=== PATIENT | male | born 1975 | race Caucasian/White ===

== ENCOUNTER 2020-10-31 04:59 | Emergency (ER) | payer OTHER ==
[~2020-10-31] VITALS: Ht 180.3 cm; Wt 113.4 kg
[~2020-10-31 04:59] MED LIST: CYCL10 PO; HYDACE5 PO; HYDACE7.5 PO; MEDICAL MARIJUANA; NAPR500 PO; Norco 10-325 T1 EACH PO; OXYACE5T PO; PROP10; TOBR.3OPSO OP; TRAM50 PO
[2020-10-31] MEDS ORDERED: GABA100 (05:36)
[2020-10-31] MEDS ORDERED: BLOOD PRESSURE MED (05:37)
[2020-10-31] MEDS ORDERED: AMOCLA875 PO (06:35)
[2020-10-31] MEDS ORDERED: HYDR1TAB94 PO (06:35)
== END 2020-10-31 06:50 | disposition home or self-care (01) ==
LOC: ER 04:59
DX: K08.89 Other specified disorders of teeth and supporting structures (principal); F17.210 Nicotine dependence, cigarettes, uncomplicated
CPT/HCPCS: 99282; A9270; J1100

== ENCOUNTER 2023-06-07 07:41 | Emergency (ER) | payer OTHER ==
[~2023-06-07] VITALS: Ht 180.3 cm; Wt 113.4 kg
[~2023-06-07 07:41] MED LIST changes: +AMOCLA875 PO; +BLOOD PRESSURE MED; +GABA100; +HYDR1TAB94 PO
[2023-06-07] MEDS ORDERED: LOSA25 PO (07:55)
[2023-06-07] MEDS ORDERED: GABA400 PO (07:56)
[2023-06-07 09:15] VITALS: BP 176/115
[2023-06-07] MEDS ORDERED: Bactrim Ds Tab1 EACH PO (09:25)
== END 2023-06-07 09:34 | disposition home or self-care (01) ==
LOC: ER 07:41
DX: L03.314 Cellulitis of groin (principal); Z79.899 Other long term (current) drug therapy; F17.200 Nicotine dependence, unspecified, uncomplicated
CPT/HCPCS: 72193; 99283-25; Q9967

== ENCOUNTER 2025-01-04 07:27 | Emergency (ER) | payer OTHER ==
[~2025-01-04] VITALS: Ht 180.3 cm; Wt 121.6 kg
[~2025-01-04 07:27] MED LIST changes: +Bactrim Ds Tab1 EACH PO; +GABA400 PO; +LOSA25 PO
[2025-01-04] MEDS ORDERED: Acetaminophen 325 MG TABLET PO ONE (08:20)
[2025-01-04] MEDS ORDERED: Ketorolac Tromethamine 30mg Vial IM ONE (08:20)
[2025-01-04] MEDS ORDERED: NAPR500EC PO ×2 (09:01→10:19)
[2025-01-04 09:13] VITALS: BP 170/98
== END 2025-01-04 09:14 | disposition home or self-care (01) ==
LOC: ER 07:27
DX: M79.672 Pain in left foot (principal); I10 Essential (primary) hypertension
CPT/HCPCS: 73630; 96372; 99283-25; A9270; J1885